=== PATIENT | male | born 1980 | race American Indian/Alaskan Native ===

== ENCOUNTER 2018-09-15 18:40 | Emergency (ER) | payer SELFPAY ==
[2018-09-15 19:04] VITALS: O2SAT 99
--- NOTE | 2018-09-15 19:28 | C.PDOC ---
History Of Present Illness 38 year old male with PMHx of seizures is brought to the ED by EMS for evaluation of seizure. Patient reports he ran out of his medications yesterday, patient does not recall the name of them. Patient no longer post ictal while in the ED. Patient denies fever, chills, nausea, vomit, dizziness, visual changes, weakness, numbness. Time Seen by Provider: 09/15/18 19:27 Chief Complaint (Nursing): Seizure History Per: Patient, EMS History/Exam Limitations: no limitations Recent Seizure Activity Began: Just Before Arrival Number Of Seizures: One Length Of Seizures (Duration): Unknown Quality Of Seizure: Generalized Precipitating Factor(s): Missed Dose Of Anti-seizure Medication Associated Symptoms: Bit Tongue Post-ictal Period: No Recent travel outside of the [place]: No Additional History Per: Patient, EMS Past Medical History Reviewed: Historical Data, Nursing Documentation, Vital Signs Vital Signs: Last Vital Signs Temp 98.7 F 09/15/18 18:45 Pulse 89 09/15/18 18:59 Resp 18 09/15/18 18:59 BP 124/51 L 09/15/18 18:45 Pulse Ox 99 09/15/18 18:59 - Medical History PMH: Seizures Denies: Chronic Kidney Disease Surgical History: No Surg Hx Family History: States: Unknown Family Hx - Social History Hx Alcohol Use: No Hx Substance Use: No - Immunization History Hx Tetanus Toxoid Vaccination: No Review Of Systems Constitutional: Negative for: Fever, Chills Eyes: Negative for: Vision Change Cardiovascular: Negative for: Chest Pain Respiratory: Negative for: Shortness of Breath Gastrointestinal: Negative for: Nausea, Vomiting, Abdominal Pain Skin: Negative for: Rash Neurological: Positive for: Headache. Negative for: Weakness, Numbness, Dizziness Physical Exam - Physical Exam Appears: Non-toxic, No Acute Distress Skin: Warm, Dry Head: Normacephalic Eye(s): bilateral: Normal Inspection Oral Mucosa: Moist Lips: Other (small right lower lip bite ) Neck: Supple Chest: Symmetrical Cardiovascular: Rhythm Regular Respiratory: No Rales, No Rhonchi, No Wheezing Gastrointestinal/Abdominal: Soft, No Tenderness, No Guarding, No Rebound Extremity: Bilateral: Atraumatic, Normal Color And Temperature, Normal ROM Neurological/Psych: Oriented x3, Normal Speech, Normal Cognition, Other (non focal) Gait: Unable To Assess ED Course And Treatment - Laboratory Results Result Diagrams: 09/15/18 19:39 09/15/18 19:39 O2 Sat by Pulse Oximetry: 99 (ON RA) Pulse Ox Interpretation: Normal Progress Note: Plan: - Labs. - IV fluids. - UA Reevaluation Time: 22:55 Reassessment Condition: Improved Disposition Counseled Patient/Family Regarding: Studies Performed, Diagnosis, Need For Followup - Disposition Referrals: [facility] [Outside] [facility] [Outside] Disposition: HOME/ ROUTINE Disposition Time: 19:27 Condition: FAIR Additional Instructions: Please take your seizure medications Instructions: Seizures, Adult (DC) Forms: [place] ([place]) - Clinical Impression Clinical Impression: Seizure - Scribe Statement The provider has reviewed the documentation as recorded by the Scribe Logan Mcclain All medical record entries made by the Scribe were at my direction and personally dictated by me. I have reviewed the chart and agree that the record accurately reflects my personal performance of the history, physical exam, medical decision making, and the department course for this patient. I have also personally directed, reviewed, and agree with the discharge instructions and disposition.
[2018-09-15] MEDS ORDERED: Sodium Chloride 0.9% 1,000 ML IV ONE (19:31)
[2018-09-15] MEDS ORDERED: Sodium Chloride 0.9% 1,000 ML ONE (19:44)
[2018-09-15 19:53] LABS: BASO % 0.2 % (0.0-2.0); EOS % 0.1 % (0.0-4.0); HEMOGLOBIN 13.4 g/dL (12.0-18.0); LYMPH # 1.5 K/uL (1.0-4.3); LYMPH % 19.5 % (20.0-40.0); MEAN CELL VOLUME 85.7 fL (80.0-94.0); MEAN CORPUSCULAR HEMOGLOBIN 28.8 pg (27.0-31.0); MEAN CORPUSCULAR HGB CONC 33.6 g/dL (33.0-37.0); MEAN PLATELET VOLUME 10.3 fL (7.2-11.7); MONO # 0.7 K/uL (0.0-0.8); MONO % 9.2 % (0.0-10.0); NEUT # 5.3 K/uL (1.8-7.0); RBC 4.66 Mil/uL (4.40-5.90); RED CELL DISTRIBUTION WIDTH 12.4 % (11.5-14.5); WHITE BLOOD COUNT 7.5 K/uL (4.8-10.8)
[2018-09-15 20:06] LABS: DILANTIN (PHENYTOIN) < 3.0 ug/mL (10-20)
[2018-09-15 20:08] LABS: ALB/GLOB RATIO 1.5 (1.0-2.1); ALT/SGPT 21 U/L (21-72); AST/SGOT 54 U/L (17-59); BLOOD UREA NITROGEN 21 mg/dL (9-20); CALCIUM 9.2 mg/dl (8.6-10.4); GFR NON-AFRICAN AMERICAN > 60
[2018-09-15 20:32] LABS: CARBAMAZEPINE < 3.0 ug/mL (4.0-12.0)
[2018-09-15 20:33] LABS: VALPROIC ACID < 10.0 ug/mL (50.0-100.0)
[2018-09-15 21:29] LABS: URINE BILIRUBIN NEGATIVE (NEGATIVE); URINE BLOOD NEGATIVE (NEGATIVE); URINE CLARITY Clear (Clear); URINE COLOR Yellow (YELLOW); URINE GLUCOSE (UA) NORMAL (Normal); URINE LEUKOCYTE ESTERASE NEG Leu/uL (Negative); URINE PROTEIN 1+ mg/dL (NEGATIVE)
[2018-09-15 21:41] LABS: BARBITURATES, UR NEGATIVE (NEGATIVE); BENZODIAZEPINES, UR NEGATIVE (NEGATIVE); OPIATES, UR NEGATIVE (NEGATIVE); PHENCYCLIDINE, UR NEGATIVE (NEGATIVE)
[2018-09-15 23:04] VITALS: BP 117/79; PULSE 85; RESP 20; TEMP 97.2
== END 2018-09-15 23:11 | disposition home or self-care (01) ==
LOC: C.ER 18:40
DX: R56.9 Unspecified convulsions (principal)
CPT/HCPCS: 80053; 80156; 80164; 80185; 81001; 82948; 85025; 96360; 99285; G0480; J7030